=== PATIENT | female | born 1985 | race Caucasian/White ===

== ENCOUNTER → 2016-12-21 | Outpatient (CLI) | payer OTHER ==
[~2016-12-21] MED LIST: BUPR8MIS PO
== END | disposition home or self-care (01) ==
LOC: C.LAB 15:45
DX: Z02.83 Encounter for blood-alcohol and blood-drug test (principal)

== ENCOUNTER → 2017-05-16 | Outpatient (CLI) | payer OTHER | END | disposition home or self-care (01) | LOC: C.PAPS 16:09 | PROVIDERS: ATTEND Obstetrics & Gynecology | DX: Z34.81 Encounter for supervision of other normal pregnancy, first trimester (principal); Z3A.00 Weeks of gestation of pregnancy not specified ==

== ENCOUNTER → 2017-05-16 | Outpatient (CLI) | payer OTHER | END | disposition home or self-care (01) | LOC: C.LABSPEC 14:45 | PROVIDERS: ATTEND Obstetrics & Gynecology | DX: Z34.81 Encounter for supervision of other normal pregnancy, first trimester (principal); Z3A.00 Weeks of gestation of pregnancy not specified ==

== ENCOUNTER 2017-08-27 19:18 | Inpatient (IN) | payer OTHER ==
[~2017-08-27] VITALS: Ht 170.2 cm; Wt 68.5 kg
[2017-08-27] MEDS ORDERED: LACTATED RINGER'S 1000ML 1,000 ML IV SCH (19:41)
[2017-08-27] MEDS ORDERED: MAGNESIUM SULFATE 4GM / WTR 100ML IV ONE (19:45)
[2017-08-27] MEDS ORDERED: BETAMETH SOD PHOS/ACETATE IA 6 MG/ML ONE (19:56)
[2017-08-27] MEDS ORDERED: AZITHROMYCIN 250 MG TAB PO ONE (20:00)
[2017-08-27] MEDS ORDERED: NURSING VERBAL MED ORDER ONE ×3 (20:00→20:15)
[2017-08-27] MEDS ORDERED: BETAMETH SOD PHOS/ACETATE IA 6 MG/ML IM SCH (20:00)
--- NOTE | 2017-08-27 20:06 | HISTORY & PHYSICAL EXAMINATION ---
DATE OF ADMISSION: 08/27/2017 CHIEF COMPLAINT: Intrauterine , 23 weeks 5 days, contractions, and ruptured membranes. HISTORY OF PRESENT ILLNESS: Patient is a 32-year-old 2, para 0. She had a history of a previous loss at 20 weeks gestation after premature rupture of membranes and a 48-hour labor. Her present is well dated, her due date is 12/20/2017. She was evaluated earlier in her course. We attempted to get her a cervical cerclage; however, she failed to keep multiple appointments. Eventually we started her on Carito one shot a week. She had a transvaginal ultrasound done on 07/30/2017 which showed a cervical length 3.8 cm. She states present events started on Saturday. She said she had questionable leakage of fluid. She started having mild contractions at about 4:00 p.m. the date of admission. They became harder. She called the office. Told her to come in immediately, at which time she had emily rupture of membranes and a cervix 1 cm, mid position, about 90% effaced. PAST MEDICAL HISTORY: She has no known drug allergies. PAST SURGICAL HISTORY: No previous surgery. MEDICATIONS: She is presently on Subutex 16 mg a day. SOCIAL HISTORY: She is a pack-a-day smoker for 10 years. No history of alcohol intake during her . Presently unemployed. FAMILY HISTORY: Mom is 50 in good health. Father at age 77, myasthenia gravis and sleep apnea. She has got 6 half brothers and sisters, all in good health. REVIEW OF SYSTEMS: HEAD: No symptoms of frequent or severe headaches. EARS: No symptoms of ear infections. PHYSICAL EXAMINATION: GENERAL: Well developed, well nourished, in moderate amount of distress. HEART: Had regular rhythm. S1, S2 are normal. LUNGS: Clear to auscultation and percussion. PELVIC: Emily rupture of membranes. Cervix 1 cm anterior, 90% effaced. MUSCULOSKELETAL: Revealed no calf tenderness. IMPRESSIONS OF THIS CASE: Intrauterine , 23 weeks 5 days, emily rupture of membranes, premature labor. [facility]
[2017-08-27] MEDS ORDERED: CLON1TAB3 PO (20:10)
[2017-08-27] MEDS ORDERED: MAGNESIUM SULFATE 40GM / WTR 1,000 ML IV SCH (20:15)
[2017-08-27] MEDS ORDERED: AMPICILLIN IV 2,000 MG in SODIUM CHLOR 0.9% AD-VAN 100ML 100 ML IV SCH (20:15)
[2017-08-27 20:18] VITALS: Ht 170.2 cm; Wt 68.5 kg
[2017-08-27 20:19] LABS: HEMATOCRIT 30.4 % (37-47); HEMOGLOBIN 10.3 g/dL (12.0-16.0); MEAN CELL VOLUME 87.6 fL (80-100); MEAN CORPUSCULAR HEMOGLOBIN 29.7 pg (25-34); MEAN CORPUSCULAR HGB CONC 33.9 g/dl (32-36); MEAN PLATELET VOLUME 10.2 fL (7.4-10.4); PLATELET COUNT 182 K/uL (130-400); RED CELL DISTRIBUTION WIDTH CV 13.7 % (11.5-14.5); RED CELL DISTRIBUTION WIDTH SD 43.8 fL (36.4-46.3); WHITE BLOOD COUNT 21.46 K/uL (4.8-10.8)
--- NOTE | 2017-09-04 11:50 | DISCHARGE SUMMARY ---
Ms. Arora follows in our office for care and delivery. She has been well dated with the first trimester ultrasound. She had a history of possible incompetent cervix in [place] and delivered a 20-week after 48 hours of labor of premature rupture of membranes. She was scheduled for multiple appointments to be seen for possible cervical cerclage. She failed to keep any of them. She also failed to keep a large part of her office visits. She was placed on Carito and she had a cervical length done at about 19 weeks which showed about 3.8 cm cervix. The day that she called she missed her office appointment called and said she thought she was going into labor, seen in the office, her cervix was 1-2 cm dilated with emily rupture of membranes. She was then transferred to maternity floor where she received magnesium sulfate. She received p.o. Zithromax, 2 g of IV ampicillin, Celestone and was promptly transferred by ambulance to [facility].
== END 2017-08-27 21:25 | disposition short-term general hospital (02) | DRG 778 ==
LOC: C.OPB 19:18 → C.LD 19:18 → C.OPB 19:44 → C.LD 19:44
PROVIDERS: ADMIT Obstetrics & Gynecology; ATTEND Obstetrics & Gynecology
DX: O60.02 Preterm labor without delivery, second trimester (principal); Z3A.23 23 weeks gestation of pregnancy; Z79.891 Long term (current) use of opiate analgesic

== ENCOUNTER 2017-08-29 04:28 | Emergency (ER) | payer OTHER ==
[~2017-08-29 04:28] MED LIST changes: +CLON1TAB3 PO
[2017-08-29 04:30] VITALS: BP 100/66; PULSE 97; TEMP 37.5; O2SAT 100
--- NOTE | 2017-08-29 04:43 | EMERGENCY ROOM VISIT NOTE ---
ED Visit Note First contact with patient: 04:33 32 yr old female at 23.6 wks with previous miscarriage at 20wks and already with PROM this a few days ago. She was transferred from here to [facility] evening and then left AMA from [facility] early yesterday () morning as not willing to stay and be evaluated by MFM nor NICU at that time. Notes she awoke about 1 hour ago with increased cramping and need to push. Noted moderate amount of blood in bed and with push baby came partially out. Called 911 and EMS found lifeless appearing breach baby with head still within vaginal canal. Patient unable to push further. Called for Medical Command and I advised transfer emergently to this facility and if full delivery evaluate fully for signs of life but given prolonged time already this would likely be un-survivable for fetus. At this time I reviewed recent notes from this and [facility]'s stay over last [address] Malin to make him aware patient coming in and he requests patient to be sent as directly as possible to L&D once she arrives. He notes he will contact L&D to make them aware. I also asked that we make L&D aware from our location as well. On arrival patient notes pelvic cramping. Denies other symptoms. Vitals wnl. She is calm, no distress and stable. She seems far calmer than would be expected in this situation. She is breathing comfortably and has soft abdomen. There is a very underdeveloped fetus between her legs with head still in vaginal canal. There is no cap refill to fetus, it is limp, no movement, no cardiac activity appreciated. It is already desiccated, dry and there is no evidence of life. As it has not moved since she awoke and she is stable I do not feel it is reasonable to have her push further while in the ED, especially given Dr Malin notes he will see patient in L&D as soon as she gets here. Full ROS not done given emergent nature and need to transfer directly to L&D per Dr Malin's request. Vitals wnl on transfer to L&D. Current/Historical Medications Scheduled Buprenorphine Hcl-Naloxone Hcl (Suboxone 8-2 Mg), 4 MG PO BID Clonazepam (Klonopin), 1 MG PO DIRECTED Allergies Coded Allergies: No Known Allergies (Unverified , 05/10/14) Vital Signs Date Time Temp Pulse Resp B/P (MAP) Pulse Ox O2 Delivery O2 Flow Rate FiO2 08/29/17 04:30 37.5 97 20 100/66 100 Non-Rebreather 15.0 Departure Information Referrals No Doctor, Assigned (PCP) Patient Instructions [facility]
[2017-08-29] MEDS ORDERED: CLON1TAB3 PO (06:05)
[2017-08-29] MEDS ORDERED: BUPR8SUB19 SL (06:06)
== END 2017-08-29 04:33 | disposition still patient (30) ==
LOC: EDBD 04:28 → C.EDA 04:31
DX: O36.8920 Maternal care for other specified fetal problems, second trimester, not applicable or unspecified (principal)

== ENCOUNTER 2017-08-29 04:39 | Inpatient (IN) | payer OTHER ==
[~2017-08-29] VITALS: Ht 170.2 cm; Wt 68.0 kg
[2017-08-29] MEDS ORDERED: OXYTOCIN 30 UNITS/500ML NSS IV ONE (04:47)
[2017-08-29] MEDS ORDERED: METHYLERGONOVINE MALEATE 0.2 MG/ML AMP ONE (05:10)
[2017-08-29] MEDS ORDERED: ACETAMINOPHEN 325 MG TAB PO PRN (05:15)
[2017-08-29] MEDS ORDERED: METHYLERGONOVINE MALEATE 0.2 MG/ML AMP IM ONE (05:15)
[2017-08-29] MEDS ORDERED: SUPERCREAM 0.870 % 15GM JAR EXT PRN (05:15)
[2017-08-29] MEDS ORDERED: OXYTOCIN 30 UNITS/500ML NSS IV PRN (05:15)
[2017-08-29] MEDS ORDERED: CEFOXITIN 2000MG/60 ML D5W IV STA (05:23)
[2017-08-29] MEDS: IBUPROFEN 600 MG TAB PO PRN ×2 (05:55→10:42)
[2017-08-29 06:03] VITALS: Ht 170.2 cm; Wt 68.0 kg
[2017-08-29] MEDS ORDERED: CLON1TAB3 PO (06:05)
[2017-08-29] MEDS ORDERED: BUPR8SUB19 SL (06:06)
[2017-08-29] MEDS ORDERED: NURSING VERBAL MED ORDER ONE ×2 (06:30→07:45)
[2017-08-29] MEDS ORDERED: NICOTINE 21 MG/24 HR TDSY EXT SCH (08:00)
[2017-08-29] MEDS ORDERED: PRENATAL VITAMIN TAB PO SCH (08:00)
[2017-08-29] MEDS ORDERED: BUPRENORPHINE HCL 8 MG SUBL SL SCH (08:00)
[2017-08-29] MEDS ORDERED: FERROUS SULFATE 325 MG TAB PO SCH (08:00)
--- NOTE | 2017-08-29 09:44 | DELIVERY SUMMARY ---
DATE OF OPERATION: 08/29/2017 Ms. Arora was a patient, followed in our office for care and delivery. She had missed most of her appointments, had refused to go to any appointment for cervical cerclage, had been transferred to [facility] the day prior to her admission with an intrauterine at 23 weeks 5 days with ruptured membranes. At our hospital, she had received antibiotics and Celestone, was transferred by ambulance. The following morning, signed herself out. On date of admission, I got a phone call from the ER stating that she was coming in by ambulance and that the baby was half delivered in breech presentation. She was told to come right up to delivery more minutes. After arriving on maternity, she delivered a stillborn . When I arrived, the placenta was still in the uterus. She had some pretty heavy bleeding. She was treated with IV Pitocin, fundal massage. I did a partial manual removal of the placenta. It seemed to come out intact. There were no perineal lacerations. After the placenta was removed, we gave her an injection of Methergine along with IV Pitocin. Uterus contracted nicely. Hemostasis was good. Estimated blood loss at the time of removal of placenta was 200 mL. I attest to the content of the Intraoperative Record and any orders documented therein. Any exception s are noted below.
[2017-08-29 12:13] LABS: BASO % 0.1 %; BASO ABS # 0.03 K/uL (0-0.2); EOS % 0.8 %; EOS ABS # 0.16 K/uL (0-0.5); HEMATOCRIT 26.5 % (37-47); HEMOGLOBIN 9.2 g/dL (12.0-16.0); IG# 0.27 K/uL (0.00-0.02); LYMPH % 9.8 %; LYMPH ABS # 1.96 K/uL (1.2-3.4); MEAN CELL VOLUME 87.7 fL (80-100); MEAN CORPUSCULAR HEMOGLOBIN 30.5 pg (25-34); MEAN CORPUSCULAR HGB CONC 34.7 g/dl (32-36); MEAN PLATELET VOLUME 10.1 fL (7.4-10.4); MONO % 6.1 %; MONO ABS # 1.23 K/uL (0.11-0.59); NEUT % 81.9 %; NEUT ABS # 16.43 K/uL (1.4-6.5); PLATELET COUNT 169 K/uL (130-400); RED CELL DISTRIBUTION WIDTH CV 13.7 % (11.5-14.5); RED CELL DISTRIBUTION WIDTH SD 44.5 fL (36.4-46.3); WHITE BLOOD COUNT 20.08 K/uL (4.8-10.8)
[2017-08-30] MEDS ORDERED: DIPHTHERIA/TETANUS/PERTUSSIS 0.5 ML SYR/VIAL IM. ONE (09:00)
[2017-08-30] MEDS ORDERED: BISACODYL 5 MG TABEC PO SCH (20:00)
[2017-08-31] MEDS ORDERED: BISACODYL 10 MG SUPP PR PRN (07:00)
== END 2017-08-29 13:40 | disposition home or self-care (01) | DRG 775 ==
LOC: C.LD 04:39
PROVIDERS: ADMIT Obstetrics & Gynecology; ATTEND Obstetrics & Gynecology
PROC: 10E0XZZ Delivery of Products of Conception, External Approach (ICD-10-PCS; principal; 2017-08-29)
DX: O32.1XX0 Maternal care for breech presentation, not applicable or unspecified (principal); Z3A.23 23 weeks gestation of pregnancy; Z37.1 Single stillbirth